=== PATIENT | male | born 1990 | race Caucasian/White ===

== ENCOUNTER 2017-05-17 14:19 | Emergency (ER) | payer SELFPAY ==
[~2017-05-17] VITALS: Ht 180.3 cm; Wt 116.1 kg
[~2017-05-17 14:19] MED LIST: ANTIVERT25 MG PO; FLEXERIL10 MG PO; LEVAQUIN500 MG PO; LORTAB 5-325 M1 EACH PO; MOTRIN600 MG PO; NOHOMEMEDS; TYLENOL EXTRA500 MG PO; ZITHROMAX250 MG PO
[2017-05-17 15:55] LABS: HEMATOCRIT 47.1 % (38.0-50.0); MCH 30.2 PG (29.0-34.0); MCHC 34.4 G/DL (30.0-36.0); MCV 87.9 FL (86-99); MEAN PLAT.VOLUME 10.6 uM^3 (9.0-12.4); PLATELET COUNT 195 K/uL (156-360); RBC DIS.WIDTH-CV 12.8 % (11.8-14.6); RBC DIS.WIDTH-SD 41.1 % (39-53); RED BLOOD COUNT 5.36 M/uL (4.00-5.50); WHITE BLOOD COUNT 17.5 K/uL (4.1-10.2)
[2017-05-17 16:11] LABS: CHLORIDE 106 mEq/L (99-109); POTASSIUM 4.1 mEq/L (3.7-5.4); SODIUM 143 mEq/L (136-147)
[2017-05-17 16:13] LABS: GLUCOSE 101 mg/dL (70-99)
[2017-05-17 16:14] LABS: ANION GAP 12 MEQ/L (2-14)
[2017-05-17 16:16] LABS: ALKALINE PHOSPHATASE 71 IU/L (3-129)
[2017-05-17 16:17] LABS: GFR ESTIMATE (CALCULATED) > 59 mL/min/
[2017-05-17 16:18] LABS: UREA NITROGEN (BUN) 14 mg/dL (9-23)
[2017-05-17 16:57] LABS: ADD MIUA? YES; BILIRUBIN NEGATIVE; BLOOD NEGATIVE; COLOR YELLOW ((YELLOW)); GLUCOSE (STRIP) NEGATIVE; KETONES NEGATIVE; LEUKOCYTES NEGATIVE; NITRITE NEGATIVE; PROTEIN (STRIP) NEGATIVE; SPECIFIC GRAVITY 1.029 (1.000-1.030); UROBILINOGEN 0.2 MG/DL (0.2-1.0)
[2017-05-17 17:00] VITALS: BP 129/72
[2017-05-17] MEDS ORDERED: NAPROSYN500 MG PO (17:03)
[2017-05-17 17:06] LABS: BACTERIA NONE SEEN /HPF; EPITHELIAL CELLS NONE SEEN /HPF; MUCUS TRACE /LPF; UCUL ADDED? NO; WHITE BLOOD CELLS 0-5 /HPF (0-5)
== END 2017-05-17 17:39 | disposition home or self-care (01) ==
LOC: EME 14:19
PROVIDERS: Nurse Practitioner Family
DX: B34.9 Viral infection, unspecified (principal); R30.0 Dysuria; R10.30 Lower abdominal pain, unspecified
CPT/HCPCS: 76705; 80053; 81003; 85027; 99281; 99283